=== PATIENT | female | born 1950 | race Caucasian/White ===

== ENCOUNTER 2016-12-20 08:51 | Emergency (ER) | payer OTHER ==
[~2016-12-20] VITALS: Ht 149.9 cm; Wt 55.3 kg
[~2016-12-20 08:51] MED LIST: VALTREX1000 MG PO
[2016-12-20] MEDS ORDERED: URSODIOL300 MG PO (09:09)
[2016-12-20] MEDS ORDERED: PROTONIX40 MG PO (09:10)
[2016-12-20] MEDS ORDERED: CALCIUM CITRAT1 EA18 PO (09:10)
[2016-12-20 10:06] LABS: HEMATOCRIT 37.4 % (36.0-46.0); MCH 29.4 PG (29.0-34.0); MCHC 32.6 G/DL (30.0-36.0); MCV 90.1 FL (83-99); MEAN PLAT.VOLUME 8.7 uM^3 (9.5-12.4); RBC DIS.WIDTH-CV 15.9 % (11.8-14.6); RBC DIS.WIDTH-SD 51.5 % (39-53)
[2016-12-20 10:18] LABS: CHLORIDE 105 mEq/L (99-109); POTASSIUM 4.2 mEq/L (3.7-5.4); SODIUM 139 mEq/L (136-147)
[2016-12-20 10:19] LABS: PLATELET COUNT 846 K/uL (156-360); RED BLOOD COUNT 4.15 M/uL (3.80-5.20); WHITE BLOOD COUNT 16.5 K/uL (4.1-10.2)
[2016-12-20 10:20] LABS: GLUCOSE 112 mg/dL (70-99)
[2016-12-20 10:21] LABS: ANION GAP 11 MEQ/L (2-14)
[2016-12-20 10:24] LABS: GFR ESTIMATE (CALCULATED) > 59 mL/min/; UREA NITROGEN (BUN) 10 mg/dL (9-23)
[2016-12-20] MEDS ORDERED: FLAGYL500 MG PO (11:22)
[2016-12-20] MEDS ORDERED: COLACE100 MG PO (11:22)
[2016-12-20] MEDS ORDERED: CIPRO500 MG PO (11:22)
[2016-12-20] MEDS ORDERED: BENTYL10 MG PO (11:47)
[2016-12-20 11:56] VITALS: BP 144/74
== END 2016-12-20 12:03 | disposition home or self-care (01) ==
LOC: EME 08:51
PROVIDERS: Physician Assistant
DX: K57.92 Diverticulitis of intestine, part unspecified, without perforation or abscess without bleeding (principal); K59.00 Constipation, unspecified; D69.6 Thrombocytopenia, unspecified; J44.9 Chronic obstructive pulmonary disease, unspecified; K21.9 Gastro-esophageal reflux disease without esophagitis; F17.200 Nicotine dependence, unspecified, uncomplicated
CPT/HCPCS: 74176; 80048; 85027; 99281; 99284

== ENCOUNTER 2016-12-23 12:47 | Emergency (ER) | payer OTHER ==
[~2016-12-23] VITALS: Ht 149.9 cm; Wt 54.2 kg
[~2016-12-23 12:47] MED LIST changes: +BENTYL10 MG PO; +CALCIUM CITRAT1 EA18 PO; +CIPRO500 MG PO; +COLACE100 MG PO; +FLAGYL500 MG PO; +PROTONIX40 MG PO; +URSODIOL300 MG PO
[2016-12-23 13:42] LABS: HEMATOCRIT 39.5 % (36.0-46.0); MCH 28.5 PG (29.0-34.0); MCHC 32.2 G/DL (30.0-36.0); MCV 88.8 FL (83-99); MEAN PLAT.VOLUME 8.5 uM^3 (9.5-12.4); PLATELET COUNT 698 K/uL (156-360); RBC DIS.WIDTH-CV 15.4 % (11.8-14.6); RED BLOOD COUNT 4.45 M/uL (3.80-5.20); WHITE BLOOD COUNT 12.9 K/uL (4.1-10.2)
[2016-12-23 13:49] LABS: ADD MIUA? YES; BILIRUBIN NEGATIVE; BLOOD NEGATIVE; COLOR YELLOW ((YELLOW)); GLUCOSE (STRIP) NEGATIVE; KETONES 5; LEUKOCYTES NEGATIVE; NITRITE NEGATIVE; PROTEIN (STRIP) NEGATIVE; SPECIFIC GRAVITY 1.011 (1.000-1.030); UROBILINOGEN 0.2 MG/DL (0.2-1.0)
[2016-12-23 13:56] LABS: BACTERIA RARE /HPF; EPITHELIAL CELLS 1+ /HPF; MUCUS TRACE /LPF; RED BLOOD CELLS 0-5 /HPF (0-5); UCUL ADDED? NO; WHITE BLOOD CELLS 0-5 /HPF (0-5)
[2016-12-23 14:16] LABS: CHLORIDE 102 mEq/L (99-109); POTASSIUM 4.5 mEq/L (3.7-5.4); SODIUM 138 mEq/L (136-147)
[2016-12-23 14:19] LABS: GLUCOSE 109 mg/dL (70-99)
[2016-12-23 14:20] LABS: ANION GAP 12 MEQ/L (2-14)
[2016-12-23 14:21] LABS: TOTAL BILIRUBIN 0.6 mg/dL (0.0-1.0)
[2016-12-23 14:22] LABS: ALKALINE PHOSPHATASE 212 IU/L (3-129); GFR ESTIMATE (CALCULATED) > 59 mL/min/
[2016-12-23 14:23] LABS: UREA NITROGEN (BUN) 8 mg/dL (9-23)
[2016-12-23] MEDS ORDERED: BENTYL10 MG PO (15:58)
[2016-12-23 17:36] VITALS: BP 138/74
== END 2016-12-23 17:36 | disposition home or self-care (01) ==
LOC: EME 12:47
DX: K59.00 Constipation, unspecified (principal); F17.200 Nicotine dependence, unspecified, uncomplicated; Z91.041 Radiographic dye allergy status
CPT/HCPCS: 74020; 74176; 80053; 81003; 85027; 99281; 99284; J7030